=== PATIENT | male | born 1950 | race Caucasian/White ===

== ENCOUNTER 2019-10-25 02:04 | Emergency (ER) | payer BC ==
[~2019-10-25] VITALS: Ht 177.8 cm; Wt 83.9 kg
[2019-10-25 02:08] VITALS: BP 156/78
--- NOTE | 2019-10-25 02:16 | NUR ---
PT AMBULATED TO BED 7 WITH STEADY GAIT
--- NOTE | 2019-10-25 02:24 | NUR ---
dr. kennedy at bedside for medical evaluation.
--- NOTE | 2019-10-25 02:30 | NUR ---
NO NURSING INTERVENTIONS NEEDED AT THIS TIME. ASSESSMENT COMPLETED BY DR. VALENCIA.
[2019-10-25 03:07] VITALS: BP 156/78
--- NOTE | 2019-10-25 03:07 | NUR ---
Patient discharged with v/s stable. Written and verbal after care instructions given and explained. Patient alert, oriented and verbalized understanding of instructions. Ambulatory with steady gait. All questions addressed prior to discharge. ID band removed. Patient advised to follow up with PMD. Rx of DEBROX 6.5% OTIC EARWAX AND ACETAMINOPHEN given. Patient educated on indication of medication including possible reaction and side effects. Opportunity to ask questions provided and answered.
--- NOTE | 2019-10-25 03:10 | NUR ---
IRIGATED PT'S LEFT EAR WITH NS AND SWABED WITH QTIP TO REMOVE MATERIAL OUT OF PT'S EAR WITHOUT INCIDENT.
== END 2019-10-25 03:07 | disposition home or self-care (01) ==
LOC: EDSEX 02:04 → MED 02:04
DX: H61.22 Impacted cerumen, left ear (principal); I10 Essential (primary) hypertension; Z87.448 Personal history of other diseases of urinary system
CPT/HCPCS: 82948; 99282